=== PATIENT | female | born 1950 | race Caucasian/White ===

== ENCOUNTER → 2016-08-26 | Outpatient (CLI) | payer OTHER ==
[~2016-08-26] MED LIST: ACET-1138 PO; ACET-1256 PO; AMOX875T PO; ASPEC81 PO; BACL10TA PO; BETA0.053 TOP; CARV12.52 PO; CHOL100010 PO; CLB/200 PO; DULO60CA44 PO; GABA-113 PO; HYDR200T5 PO; IBUP-1050 PO; IRBE-43 PO; IRBE1TAB PO; LEVO100T PO; LYR50 PO; PARO1TAB27 PO; RXC5 PO; SIMV40TA2 PO; SNK PO; THIA100T11 PO; ZOLP12.5 PO; ZOLP1TAB PO
--- NOTE | 2016-08-26 16:03 | DIAGNOSTIC IMAGING REPORT ---
LEG LENGTH STUDY (WHOLE LEG) CLINICAL HISTORY: ABNORMAL GAIN, LUMBAR SPINAL STENOSIS COMPARISON STUDY: No previous studies for comparison. FINDINGS: There are postsurgical changes of a posterior lumbar spinal fusion. There are bilateral sacral bolts present. There are bilateral total hip arthroplasties. The right lower extremity from the top of the acetabular cup to the tibial plafond measures 869 mm. The left lower extremity from the top of the acetabular cup the tibial plafond measures 867 mm. IMPRESSION: 1. Postsurgical changes involve the spine and hips 2. Leg length discrepancy of less than 2 mm. Electronically signed by: Alpesh Solo M.D. 08/26/2016 4:01 PM
[2016-08-26 16:31] LABS: BASO % 0.4 %; BASO ABS # 0.03 K/uL (0-0.2); COMPLETE YES; HEMATOCRIT 37.6 % (37-47); IG% 0.1 %; LYMPH % 29.2 %; LYMPH ABS # 2.05 K/uL (1.2-3.4); MEAN CELL VOLUME 87.9 fL (80-100); MEAN CORPUSCULAR HEMOGLOBIN 29.2 pg (25-34); MEAN CORPUSCULAR HGB CONC 33.2 g/dl (32-36); MONO % 7.7 %; NEUT % 59.6 %; PLATELET COUNT 281 K/uL (130-400); RED BLOOD COUNT 4.28 M/uL (4.2-5.4); WHITE BLOOD COUNT 7.03 K/uL (4.8-10.8)
[2016-08-26 16:45] LABS: FERRITIN 44.1 ng/ml (8.0-388.0)
== END | disposition home or self-care (01) ==
LOC: C.RADBC 15:05
PROVIDERS: ATTEND Internal Medicine
DX: M48.06 Spinal stenosis, lumbar region (principal); R26.9 Unspecified abnormalities of gait and mobility

== ENCOUNTER → 2016-10-28 | Outpatient (CLI) | payer OTHER ==
[~2016-10-28] MED LIST changes: -ACET-1138 PO; -AMOX875T PO; -ASPEC81 PO; -BACL10TA PO; -CHOL100010 PO; -CLB/200 PO; -GABA-113 PO; -HYDR200T5 PO; -IRBE1TAB PO; -PARO1TAB27 PO; -RXC5 PO; -SNK PO; -ZOLP12.5 PO
== END | disposition home or self-care (01) ==
LOC: C.LABPBG 15:38
PROVIDERS: ATTEND Internal Medicine
DX: Z11.59 Encounter for screening for other viral diseases (principal); E03.9 Hypothyroidism, unspecified

== ENCOUNTER 2017-10-10 14:15 | Emergency (ER) | payer OTHER ==
[~2017-10-10] VITALS: Ht 167.6 cm; Wt 74.2 kg
[2017-10-10 14:23] VITALS: TEMP 36.7; Ht 167.6 cm; Wt 74.2 kg
[2017-10-10] MEDS ORDERED: SODIUM CHLORIDE 0.9% 1000ML 1,000 ML IV STA (17:16)
--- NOTE | 2017-10-10 17:22 | EMERGENCY ROOM VISIT NOTE ---
History Report prepared by Dylon: Ayden Jimenez Under the Supervision of: Dr. Yelitza Iqbal D.O. First contact with patient: 17:04 Chief Complaint: COUGH Stated Complaint: COUGH Nursing Triage Summary: triage note; pt reports cough x 1 week. "they gave me an antibiotic but it is not working." pt reports diarrhea x 1 week. pt had flu test done out pt that was neg. History of Present Illness The patient is a 67 year old female who presents to the Emergency Room with complaints of a persistent dry cough for the past week. The patient states that four days ago she was put on doxycycline for a bronchitis, though she states that it has not made her feel better. She states that she went back to her PCP this morning, and they sent her here for fluids for her low blood pressure, antibiotics, and a chest x-ray. She states that she occasionally coughs up yellow phlegm. The patient denies any history of asthma or COPD, though she states that she smoked for 15-20 years. She reports that she had diarrhea twice this morning, and there was no blood in it. She states that a week ago she had diarrhea, vomiting, lack of appetite, and no energy. She denies any aches, fevers, chills, trouble urinating, and any leg swelling. The patient reports that she did not get her flu shot this year. The patient states that she adjusted her blood pressure medications within the last two months. Source of History: patient Onset: the past week Position: other (global) Quality: other (cough) Timing: other (persistent) Associated Symptoms: + diarrhea, No fevers, No chills Review of Systems See HPI for pertinent positives & negatives. A total of 10 systems reviewed and were otherwise negative. Past Medical & Surgical Medical Problems: (1) History of - pulmonary embolus (2) History of - tubal ligation (3) History of appendectomy (4) Hypothyroidism (5) Microscopic hematuria (6) Pulmonary embolism Surgical Problems: (1) Post-operative state Family History Diabetes mellitus FH: heart disease FH: lung disease Hypertension Social History Smoking Status: Never Smoker Alcohol Use: none Drug Use: none Marital Status: Housing Status: lives with significant other Occupation Status: unemployed Current/Historical Medications Scheduled Carvedilol (Carvedilol), 25 MG PO BID Cholecalciferol (Vitamin D3), 1,000 UNITS PO QAM Doxycycline Monohydrate (Monodox), 100 MG PO BID Duloxetine HCl (Cymbalta), 30 MG PO DAILY Duloxetine Hcl (Cymbalta), 60 MG PO DAILY Hydrochlorothiazide (Hctz), 25 MG PO QAM Hydroxychloroquine Sulfate (Plaquenil), 200 MG PO BID Irbesartan (Irbesartan), 300 MG PO QAM Levothyroxine Sodium (Synthroid), 100 MCG PO DAILY Potassium Chloride (K-Tabs), 1 TAB PO DAILY Prednisone (Prednisone Tab), 0 PO DAILY Pregabalin (Lyrica), 50 MG PO BID Simvastatin (Zocor), 40 MG PO QPM Scheduled PRN Acetaminophen (Tylenol), 1,000 MG PO BID PRN for Pain Benzonatate (Tessalon Perles), 100 MG PO TID PRN for Cough Betamethasone Dipropionate (To (Betamethasone Dipropionat), 1 APPLN TOP DAILY PRN for RASH Ibuprofen (Advil), 400 MG PO Q6 PRN for Headache or Pain Zolpidem Tartrate (Ambien Er), 12.5 MG PO HS PRN for Sleep Allergies Coded Allergies: Codeine (Verified Adverse Reaction, Severe, GI SYMPTOMS, 10/10/17) Morphine (Verified Adverse Reaction, Severe, GI SYMPTOMS, 10/10/17) Physical Exam Vital Signs Date Time Temp Pulse Resp B/P (MAP) Pulse Ox O2 Delivery O2 Flow Rate FiO2 10/10/17 19:55 155/77 157/81 10/10/17 19:44 80 20 154/81 99 Room Air 10/10/17 18:48 65 18 146/68 100 Nebulizer 10/10/17 17:42 63 18 121/90 99 Room Air 10/10/17 17:25 99 Room Air 10/10/17 14:23 36.7 68 20 94/59 97 Room Air Physical Exam GENERAL: alert, well appearing, well nourished, no distress, non-toxic EYE EXAM: normal conjunctiva, PERRL and EOM's grossly intact OROPHARYNX: no exudate, no erythema, lips, buccal mucosa, and tongue normal and mucous membranes are moist. Dentures in place. NECK: supple, no nuchal rigidity, no adenopathy, non-tender LUNGS: Left base posteriorly has a rhonchitic sound. Normal chest wall mechanics HEART: no murmurs, S1 normal and S2 normal ABDOMEN: abdomen soft, non-tender, normo-active bowel sounds, no masses, no rebound or guarding. BACK: Back is symmetrical on inspection and there is no deformity, no midline tenderness, no CVA tenderness. SKIN: no rashes and no bruising UPPER EXTREMITIES: upper extremities are grossly normal. LOWER EXTREMITIES: No pitting edema. NEURO EXAM: Normal sensorium, cranial nerves II-XII grossly intact, normal speech, no gross weakness of arms, no gross weakness of legs. Medical Decision & Procedures ER Provider Diagnostic Interpretation: Radiology results have been interpreted by the radiologist and reviewed by me. CHEST 2 VIEWS ROUTINE HISTORY: cough COMPARISON: Chest 12/01/2014. FINDINGS: Posterior fusion hardware seen within the lower thoracic and lumbar spine. An IVC filter is partially visualized. Surgical clips within the right upper quadrant. The lungs are clear. The heart is borderline enlarged. This remains unchanged. No pleural effusions. No pneumothorax. Cervical spinal fusion hardware is again noted. Mild pectus excavatum deformity, unchanged. IMPRESSION: No significant change compared to the prior study. No acute process. Electronically signed by: Matthew Soto M.D. 10/10/2017 6:34 PM Dictated Date/Time: 10/10/2017 6:32 PM Laboratory Results 10/10/17 18:05 Red Blood Count 4.19, Mean Corpuscular Volume 82.3, Mean Corpuscular Hemoglobin 29.6, Mean Corpuscular Hemoglobin Concent 35.9, Mean Platelet Volume 8.2, Neutrophils (%) (Auto) 54.5, Lymphocytes (%) (Auto) 34.1, Monocytes (%) (Auto) 10.0, Eosinophils (%) (Auto) 0.8, Basophils (%) (Auto) 0.2, Neutrophils # (Auto ) 2.88, Lymphocytes # (Auto) 1.80, Monocytes # (Auto) 0.53, Eosinophils # (Auto ) 0.04, Basophils # (Auto) 0.01 10/10/17 18:05 Test 10/10/17 17:55 10/10/17 18:05 Influenza Type A Antigen Neg for Influ A (NEG) Influenza Type B Antigen Neg for Influ B (NEG) White Blood Count 5.28 K/uL (4.8-10.8) Red Blood Count 4.19 M/uL (4.2-5.4) Hemoglobin 12.4 g/dL (12.0-16.0) Hematocrit 34.5 % (37-47) Mean Corpuscular Volume 82.3 fL (80-100) Mean Corpuscular Hemoglobin 29.6 pg (25-34) Mean Corpuscular Hemoglobin Concent 35.9 g/dl (32-36) Platelet Count 284 K/uL (130-400) Mean Platelet Volume 8.2 fL (7.4-10.4) Neutrophils (%) (Auto) 54.5 % Lymphocytes (%) (Auto) 34.1 % Monocytes (%) (Auto) 10.0 % Eosinophils (%) (Auto) 0.8 % Basophils (%) (Auto) 0.2 % Neutrophils # (Auto) 2.88 K/uL (1.4-6.5) Lymphocytes # (Auto) 1.80 K/uL (1.2-3.4) Monocytes # (Auto) 0.53 K/uL (0.11-0.59) Eosinophils # (Auto) 0.04 K/uL (0-0.5) Basophils # (Auto) 0.01 K/uL (0-0.2) RDW Standard Deviation 36.0 fL (36.4-46.3) RDW Coefficient of Variation 11.9 % (11.5-14.5) Immature Granulocyte % (Auto) 0.4 % Immature Granulocyte # (Auto) 0.02 K/uL (0.00-0.02) Anion Gap 12.0 mmol/L (3-11) Est Creatinine Clear Calc Drug Dose 59.4 ml/min Estimated GFR () 71.4 Estimated GFR (Non- 61.6 BUN/Creatinine Ratio 5.7 (10-20) Calcium Level 9.5 mg/dl (8.5-10.1) Total Bilirubin 1.1 mg/dl (0.2-1) Aspartate Amino Transf (AST/SGOT) 29 U/L (15-37) Alanine Aminotransferase (ALT/SGPT) 30 U/L (12-78) Alkaline Phosphatase 93 U/L (45-117) Troponin I < 0.015 ng/ml (0-0.045) Pro-B-Type Natriuretic Peptide 123 pg/ml (0-900) Total Protein 7.1 gm/dl (6.4-8.2) Albumin 3.4 gm/dl (3.4-5.0) Globulin 3.7 gm/dl (2.5-4.0) Albumin/Globulin Ratio 0.9 (0.9-2) Laboratory results per my review. Medications Administered Medications (Trade) Dose Ordered Sig/Natividad Route Start Time Stop Time Status Last Admin Dose Admin Sodium Chloride 1,000 ml @ 250 mls/hr Q4H STAT IV 10/10/17 17:16 10/10/17 20:49 DC 10/10/17 18:43 250 MLS/HR Albuterol/ Ipratropium (Duoneb) 3 ml NOW STAT INH 10/10/17 18:19 10/10/17 18:20 DC 10/10/17 18:42 3 ML Benzonatate (Tessalon Perles Cap) 100 mg NOW ONCE PO 10/10/17 18:30 10/10/17 18:31 DC 10/10/17 18:42 100 MG Potassium Chloride (Klor-Con M10) 40 meq NOW STAT PO 10/10/17 19:09 10/10/17 19:10 DC 10/10/17 19:39 40 MEQ Prednisone (PredniSONE TAB) 60 mg NOW STAT PO 10/10/17 19:18 10/10/17 19:19 DC 10/10/17 19:39 60 MG Albuterol (Ventolin Hfa Inhaler) 2 puffs NOW ONCE INH 10/10/17 20:00 10/10/17 20:01 DC 10/10/17 20:00 2 PUFFS ECG Per My Interpretation Indication: SOB/dyspnea Rate (beats per minute): 62 Rhythm: sinus rhythm Findings: 1st degree AV block, Q waves (lead 3 and AVF), no acute ischemic change, other (T wave flattening in the precordial leads) ED Course 1703: The patient was evaluated in room B7. A complete history and physical exam was performed. 1716: Sodium Chloride 1000 ml @ 250 mls/hr IV 1819: DuoNeb 3ml INH 1830: Benzonatate 100mg PO 1850: I reevaluated the patient, and she is coughing less. I updated her on the results. 1909: Potassium Chloride 40meq PO 1918: Prednisone 60mg PO 1919: Upon reevaluation, the patient is feeling a little better. I discussed the findings and the treatment plan with the patient. She verbalizes agreement and understanding. She was discharged home. 2000: Albuterol 2 puffs INH Medical Decision Differential diagnosis: Etiologies such as infections, reactive airway disease, pneumonia, pneumothorax , COPD, CHF, cardiac ischemia, pulmonary embolism, musculoskeletal, gastrointestinal, as well as others were entertained. Patient improved or following additional medications. No overt evidence of failed outpatient treatment. No hypoxia. I feel initial hypotensive blood pressure readings are an error as the rest of her blood pressure readings were within normal limits. Patient was given IV fluid rehydration as a precaution. Discussed with patient additional medications to help with her symptoms while she completes her course of antibiotics. Discussed continued follow-up with family doctor, symptoms to watch and return for, she verbalized understanding was agreeable to plan. I do not suspect additional cardiac etiology, doubt PE, tamponade, additional vascular etiology. No evidence of bacteremia/sepsis. Patient well-appearing at discharge, tolerating by mouth, and ambulated with steady gait. Patient's hypokalemia was noted and was repleted here. Additional bedside discussion regarding potassium-containing foods any recheck of her potassium level by her family doctor. Patient's sodium level mildly decreased, however did receive normal saline as part of her IV rehydration. Discussed that this could be rechecked by her family doctor also. No evidence of acute renal failure other kidney dysfunction. Medication Reconcilliation Current Medication List: was personally reviewed by me Blood Pressure Screening Patient's blood pressure: Elevated blood pressure Blood pressure disposition: Elevated BP felt to be situational Impression Primary Impression: Upper respiratory infection Additional Impression: Hypokalemia Scribe Attestation The scribe's documentation has been prepared under my direction and personally reviewed by me in its entirety. I confirm that the note above accurately reflects all work, treatment, procedures, and medical decision making performed by me. Departure Information Dispostion Home / Self-Care Prescriptions Potassium Chloride (K-TABS) 10 Meq Tab 1 TAB PO DAILY, #30 Prov: Yelitza Iqbal, DO 10/10/17 Prednisone (Prednisone Tab) 20 Mg Tab 0 PO DAILY, #7 TAB 2 TABS DAILY FOR 2 DAYS, THEN 1 TAB DAILY FOR 2 DAYS, THEN 1/2 TAB DAILY FOR 2 DAYS. Prov: Yelitza IqbalDallin, DO 10/10/17 Referrals No Doctor, Assigned (PCP) Forms HOME CARE DOCUMENTATION FORM, IMPORTANT VISIT INFORMATION Patient Instructions My [facility] Additional Instructions Please continue your antibiotics as prescribed. Please take the steroids as prescribed. Please start taking a potassium supplement and have your family doctor recheck your potassium level next week. It is likely lower due to your blood pressure medication. You may use the inhaler and spacer up to every 4 hours for fits of coughing or trouble breathing. If you have any increased trouble breathing, noticed blood in your sputum, have recurrent fevers, develop vomiting or diarrhea, dizziness, have increased heartburn or indigestion, or you have any other new or concerning symptoms, please return the emergency room. Problem Qualifiers Primary Impression: Upper respiratory infection URI type: unspecified URI Qualified Codes: J06.9 - Acute upper respiratory infection, unspecified
[2017-10-10] MEDS ORDERED: ALBUT/IPRATROP 3MG/0.5MG NEB 3 ML VIAL INH STA (18:19)
[2017-10-10 18:28] LABS: BASO % 0.2 %; BASO ABS # 0.01 K/uL (0-0.2); EOS % 0.8 %; EOS ABS # 0.04 K/uL (0-0.5); HEMATOCRIT 34.5 % (37-47); HEMOGLOBIN 12.4 g/dL (12.0-16.0); IG# 0.02 K/uL (0.00-0.02); LYMPH % 34.1 %; MEAN CELL VOLUME 82.3 fL (80-100); MEAN CORPUSCULAR HEMOGLOBIN 29.6 pg (25-34); MEAN CORPUSCULAR HGB CONC 35.9 g/dl (32-36); MEAN PLATELET VOLUME 8.2 fL (7.4-10.4); MONO ABS # 0.53 K/uL (0.11-0.59); NEUT % 54.5 %; NEUT ABS # 2.88 K/uL (1.4-6.5); PLATELET COUNT 284 K/uL (130-400); RED CELL DISTRIBUTION WIDTH CV 11.9 % (11.5-14.5); WHITE BLOOD COUNT 5.28 K/uL (4.8-10.8)
[2017-10-10] MEDS ORDERED: BENZONATATE 100MG CAP PO ONE (18:30)
--- NOTE | 2017-10-10 18:35 | DIAGNOSTIC IMAGING REPORT ---
CHEST 2 VIEWS ROUTINE HISTORY: cough COMPARISON: Chest 12/01/2014. FINDINGS: Posterior fusion hardware seen within the lower thoracic and lumbar spine. An IVC filter is partially visualized. Surgical clips within the right upper quadrant. The lungs are clear. The heart is borderline enlarged. This remains unchanged. No pleural effusions. No pneumothorax. Cervical spinal fusion hardware is again noted. Mild pectus excavatum deformity, unchanged. IMPRESSION: No significant change compared to the prior study. No acute process. Electronically signed by: Matthew Soto M.D. 10/10/2017 6:34 PM Dictated Date/Time: 10/10/2017 6:32 PM
[2017-10-10] MEDS ORDERED: HYDR200T5 PO (18:36)
[2017-10-10] MEDS ORDERED: IRBE1TAB50 PO (18:36)
[2017-10-10] MEDS ORDERED: HYDR25TA4 PO (18:36)
[2017-10-10] MEDS ORDERED: BENZ100C18 PO (18:36)
[2017-10-10] MEDS ORDERED: DOXY100C76 PO (18:36)
[2017-10-10] MEDS ORDERED: CHOL1000 PO (18:36)
[2017-10-10] MEDS ORDERED: CRG25 PO (18:36)
[2017-10-10] MEDS ORDERED: CYM/30 PO (18:38)
[2017-10-10 18:45] LABS: ALBUMIN 3.4 gm/dl (3.4-5.0); ALT/SGPT 30 U/L (12-78); BLOOD UREA NITROGEN 5 mg/dl (7-18); CALCIUM 9.5 mg/dl (8.5-10.1); CARBON DIOXIDE 28 mmol/L (21-32); CREATININE 0.96 mg/dl (0.60-1.20); GLUCOSE 103 mg/dl (70-99); POTASSIUM 2.6 mmol/L (3.5-5.1); SODIUM 127 mmol/L (136-145)
[2017-10-10 18:50] LABS: ALKALINE PHOSPHATASE 93 U/L (45-117); AST/SGOT 29 U/L (15-37); TOTAL PROTEIN 7.1 gm/dl (6.4-8.2)
[2017-10-10 19:00] LABS: INFLUENZA B ANTIGEN Neg for Influ B (NEG)
[2017-10-10] MEDS ORDERED: POTASSIUM CHLORIDE 10 MEQ TABCR PO STA (19:09)
[2017-10-10 19:44] VITALS: PULSE 80; O2SAT 99
[2017-10-10 19:55] VITALS: BP 157/81
[2017-10-10] MEDS ORDERED: ALBUTEROL HFA 8 GM INHALER INH ONE (20:00)
[2017-10-10] MEDS ORDERED: PRED20TA2 PO (20:01)
[2017-10-10] MEDS ORDERED: POTA10TA PO (20:01)
== END 2017-10-10 20:10 | disposition home or self-care (01) ==
LOC: C.EDB 14:17
DX: J06.9 Acute upper respiratory infection, unspecified (principal); E87.6 Hypokalemia; R19.7 Diarrhea, unspecified; E03.9 Hypothyroidism, unspecified; Z86.711 Personal history of pulmonary embolism; Z98.51 Tubal ligation status; Z90.89 Acquired absence of other organs; Z83.3 Family history of diabetes mellitus; Z82.49 Family history of ischemic heart disease and other diseases of the circulatory system; Z79.899 Other long term (current) drug therapy

== ENCOUNTER → 2017-10-17 | Outpatient (CLI) | payer OTHER ==
[~2017-10-17] MED LIST changes: +BENZ100C18 PO; -CARV12.52 PO; +CHOL1000 PO; +CRG25 PO; +CYM/30 PO; +DOXY100C76 PO; +HYDR200T5 PO; +HYDR25TA4 PO; -IRBE-43 PO; +IRBE1TAB50 PO; +POTA10TA PO; +PRED20TA2 PO; -THIA100T11 PO
[2017-10-17 17:14] LABS: BLOOD UREA NITROGEN 8 mg/dl (7-18); CALCIUM 9.2 mg/dl (8.5-10.1); CARBON DIOXIDE 31 mmol/L (21-32); CREATININE 0.81 mg/dl (0.60-1.20); GLUCOSE 102 mg/dl (70-99); POTASSIUM 3.2 mmol/L (3.5-5.1); SODIUM 131 mmol/L (136-145)
== END | disposition home or self-care (01) ==
LOC: C.LABPBG 13:43
PROVIDERS: ATTEND Internal Medicine
DX: D64.9 Anemia, unspecified (principal)

== ENCOUNTER → 2017-10-27 | Outpatient (CLI) | payer OTHER ==
[2017-10-27 18:11] LABS: BLOOD UREA NITROGEN 5 mg/dl (7-18); CALCIUM 8.9 mg/dl (8.5-10.1); CARBON DIOXIDE 25 mmol/L (21-32); GLUCOSE 112 mg/dl (70-99); SODIUM 134 mmol/L (136-145)
== END | disposition home or self-care (01) ==
LOC: C.LABPBG 13:39
PROVIDERS: ATTEND Internal Medicine
DX: D64.9 Anemia, unspecified (principal)